=== PATIENT | male | born 1995 | race Caucasian/White ===

== ENCOUNTER 2016-10-09 13:41 | Emergency (ER) | payer OTHER ==
[2016-10-09 13:43] VITALS: BP 135/88; PULSE 71; RESP 20; TEMP 98.4; O2SAT 100
--- NOTE | 2016-10-09 14:22 | PD ---
Physical Exam Time Seen by Provider: 14:20 Narrative 20 y/o male with L sided chest pain, nausea for 2 days. went to a different emergency room yesterday for evaluation of this issue already. he has also had a h/a for 4 days and went to an emergency room for evaluation of this 4 days ago and reportedly had a CT of the brain which was normal. Vital signs reviewed. Seen at triage desk. Awaiting bed placement. Data Data Last Documented VS Vital Signs Date Time Temp Pulse Resp B/P Pulse Ox O2 Delivery O2 Flow Rate FiO2 10/09/16 13:43 98.4 71 20 135/88 100 Room Air [facility] Medical Record Reviewed: Yes Supervised Visit with LASHAE: Chuck Moctezuma Oct 09, 2016 14:22
[2016-10-09] MEDS ORDERED: SODIUM CHLOR 0.9% 1000 ML INJ 1,000 ML IV SCH (17:53)
--- NOTE | 2016-10-09 17:54 | PD ---
HPI Chief Complaint: Chest Pain Time Seen by Provider: 17:54 Travel History International Travel<30 days: No Contact w/Intl Traveler<30days: No Traveled to known affect area: No History of Present Illness HPI 20-year-old male presents to the emergency department for evaluation of left anterior chest pain that began yesterday. Patient describes the pain as sharp and intermittent. States that he has also had nausea and vomiting for 2-3 days. States that he does have some mild shortness of breath and feels very hot. States that he was seen at [facility] last night for the chest pain and discharged home. States that he has swelling of his left breast that has been present and worsening over the last 6 years. He has been told he needs an outpatient mammogram but has not followed up. Denies any chills, abdominal pain , swelling of the extremities, lightheadedness, dizziness, syncope. Denies alcohol use. He smokes cigarettes and cannabis. Denies any family history of heart disease or [place]. Denies any family history of sudden cardiac . He does admit that he is under a lot of stress as he is currently going through a divorce. No other complaints. [facility] Past Medical History Medical History: Denies Significant Hx Tetanus Vaccination: > 5 Years Influenza Vaccination: No Past Surgical History Appendectomy: Yes Social History Alcohol Use: No Tobacco Use: Yes (1 PPD) Substance Use: Yes Allergies-Medications (Allergen,Severity, Reaction): Coded Allergies: No Known Allergies (Unverified , 10/09/16) Reported Meds & Prescriptions Reported Meds & Active Scripts Active No Active Prescriptions or Reported Medications Review of Systems Except as stated in HPI: all other systems reviewed are Neg Physical Exam Narrative GENERAL: Well-nourished and well-developed pleasant patient in no acute distress who is nontoxic appearing. SKIN: Warm and dry. HEAD: Normocephalic and atraumatic. EYES: No injection, drainage, or hyphema noted. PERRLA. EOMI. ENT: No nasal drainage noted. Oropharynx is clear. NECK: Supple and the trachea is midline. CARDIOVASCULAR: Regular rate and rhythm. RESPIRATORY: Breath sounds are equal bilaterally with no accessory muscle use, wheezing, rhonchi, or crackles. CHEST: Tenderness to palpation along left sternal border. Right breast is within normal limits. Left breast tissue is enlarged but nontender. No erythema, warmth, nipple discharge, induration. GASTROINTESTINAL: Abdomen is soft, non-tender, and nondistended. MUSCULOSKELETAL: No obvious deformities, swelling, cyanosis, or ecchymosis is present throughout the upper and lower extremities. Patient has full range of motion without any signs of neurovascular compromise. NEUROLOGICAL: Awake, alert, and oriented. Normal speech and gait. Cranial nerves are grossly intact. Data Data Last Documented VS Vital Signs Date Time Temp Pulse Resp B/P Pulse Ox O2 Delivery O2 Flow Rate FiO2 10/09/16 19:27 73 16 119/65 98 Room Air 10/09/16 13:43 98.4 Orders Electrocardiogram (10/09/16 17:51) Ckmb (Isoenzyme) Profile (10/09/16 17:51) Complete Blood Count With Diff (10/09/16 17:51) Comprehensive Metabolic Panel (10/09/16 17:51) Magnesium (Mg) (10/09/16 17:51) Prothrombin Time / Inr (Pt) (10/09/16:51) Act Partial Throm Time (Ptt) (10/09/16 17:51) Troponin I (10/09/16 17:51) Lipase (10/09/16 17:51) Chest, Single Ap (10/09/16 17:51) Ecg Monitoring (10/09/16 17:51) Iv Access Insert/Monitor (10/09/16 17:51) Oximetry (10/09/16 17:51) Sodium Chloride 0.9% Flush (Ns Flush) (10/09/16 18:00) Ct Pulmonary Angiogram (10/09/16 17:53) Sodium Chlor 0.9% 1000 Ml Inj (Ns 1000 M (10/09/16 17:53) CKMB (10/09/16 18:25) CKMB% (10/09/16 18:25) Alprazolam (Xanax) (10/09/16 20:00) Iohexol 350 Inj (Omnipaque 350 Inj) (10/09/16 20:17) Ketorolac Inj (Toradol Inj) (10/09/16 20:45) Mandatory Outpatient Referral (10/09/16 20:41) Labs Laboratory Tests Test 10/09/16 18:25 White Blood Count 12.2 TH/MM3 Red Blood Count 4.81 MIL/MM3 Hemoglobin 14.4 GM/DL Hematocrit 43.1 % Mean Corpuscular Volume 89.7 FL Mean Corpuscular Hemoglobin 29.9 PG Mean Corpuscular Hemoglobin 33.3 % Concent Red Cell Distribution Width 12.6 % Platelet Count 168 TH/MM3 Mean Platelet Volume 9.4 FL Neutrophils (%) (Auto) 79.6 % Lymphocytes (%) (Auto) 14.3 % Monocytes (%) (Auto) 5.6 % Eosinophils (%) (Auto) 0.4 % Basophils (%) (Auto) 0.1 % Neutrophils # (Auto) 9.7 TH/MM3 Lymphocytes # (Auto) 1.7 TH/MM3 Monocytes # (Auto) 0.7 TH/MM3 Eosinophils # (Auto) 0.0 TH/MM3 Basophils # (Auto) 0.0 TH/MM3 CBC Comment DIFF FINAL Differential Comment Prothrombin Time 11.5 SEC Prothromb Time International 1.0 RATIO Ratio Activated Partial 26.8 SEC Thromboplast Time Sodium Level 139 MEQ/L Potassium Level 4.0 MEQ/L Chloride Level 107 MEQ/L Carbon Dioxide Level 26.8 MEQ/L Anion Gap 5 MEQ/L Blood Urea Nitrogen 13 MG/DL Creatinine 0.84 MG/DL Estimat Glomerular Filtration 114 ML/MIN Rate Random Glucose 80 MG/DL Calcium Level 9.3 MG/DL Magnesium Level 2.0 MG/DL Total Bilirubin 1.0 MG/DL Aspartate Amino Transf 23 U/L (AST/SGOT) Alanine Aminotransferase 21 U/L (ALT/SGPT) Alkaline Phosphatase 56 U/L Total Creatine Kinase 140 U/L Creatine Kinase MB 0.7 NG/ML Troponin I LESS THAN 0.02 NG/ML Total Protein 7.2 GM/DL Albumin 4.4 GM/DL Lipase 102 U/L [facility] Medical Decision Making Medical Screen Exam Complete: Yes Emergency Medical Condition: Yes Differential Diagnosis Costochondritis versus pleurisy versus PE versus mass Narrative Course 20-year-old male presents to the emergency department for evaluation of left anterior chest pain that began yesterday. Patient is afebrile, vital signs are stable. On physical examination he has tenderness to the left anterior chest wall along the sternum and he has an enlarged left breast however no tenderness or signs of infection of the breast tissue. IV access was obtained, labs of been drawn and sent. Patient is placed on cardiac telemetry and pulse oximetry monitoring. CT pulmonary angiogram has been ordered and is pending. EKG shows sinus bradycardia with ventricular rate of 50 bpm, just elevations or depressions. CBC shows slightly elevated white blood cell count 12.2, otherwise unremarkable. CMP is unremarkable. Cardiac enzymes are negative. Coags are unremarkable. Chest x-ray is negative for any acute abnormalities. CT pulmonary pulmonary angiogram is negative for PE. Discussed all findings with the patient. Labs and imaging are reassuring. Patient has remained stable while here in the emergency department. His pain is likely secondary to costochondritis or musculoskeletal etiology. He does have left breast tissue prominence which is likely gynecomastia. Because this is the side where he is having pain and he has never had this properly evaluated will order a mandatory outpatient referral for the breast navigator to have the patient follow-up as an outpatient. I discussed the case with my attending physician Dr. Arthur who is aware of the patients history, physical examination findings, and treatment plan. Diagnosis Primary Impression: Chest wall pain Additional Impressions: Gynecomastia, male Anxiety Referrals: Primary Care Physician Patient Instructions: Chest Wall Pain (ED), General Instructions, Gynecomastia (ED) Med/Other Pt SpecificInfo: Prescription(s) given Scripts Naproxen 500 Mg Ult675 Mg PO BID 7 Days Ref 0 Prov:Ras Arthur MD 10/09/16 Disposition: 01 DISCHARGE HOME Condition: Stable Gia Rubio Oct 09, 2016 17:54
[2016-10-09] MEDS ORDERED: SODIUM CHLORIDE 0.9% FLUSH 10 ML FLUSH IVF PRN (18:00)
[2016-10-09 18:36] VITALS: O2SAT 99
[2016-10-09 18:48] VITALS: BP 121/66; PULSE 58; RESP 18; O2SAT 100
--- NOTE | 2016-10-09 18:48 | RADRPT ---
EXAM DATE/TIME: 10/09/2016 18:41 [facility] COMPARISON: No previous studies available for comparison. INDICATIONS : Chest pain since yesterday. MEDICAL HISTORY : None. SURGICAL HISTORY : None. ENCOUNTER: Initial ACUITY: 2 days PAIN SCORE: 8/10 LOCATION: Bilateral chest FINDINGS: The lungs are clear without infiltrate, nodule, or mass. There is no appreciable pleural effusion fo r technique. Heart and mediastinum are unremarkable. CONCLUSION: No acute cardiopulmonary disease. Silva Jacobs MD on October 09, 2016 at 18:46 Board Certified Radiologist. This report was verified electronically.
[2016-10-09 18:51] LABS: AUTOMATED NEUTROPHIL # 9.7 TH/MM3 (1.8-7.7); BASOPHIL % 0.1 % (0.0-2.0); EOSINOPHIL % 0.4 % (0.0-4.0); HEMATOCRIT 43.1 % (39.0-51.0); HEMO FLAGS DIFF FINAL; LYMPH % 14.3 % (9.0-44.0); LYMPHOCYTE # 1.7 TH/MM3 (1.0-4.8); MEAN CELL VOLUME 89.7 FL (80.0-100.0); MEAN CORPUSCULAR HEMOGLOBIN 29.9 PG (27.0-34.0); MEAN CORPUSCULAR HGB CONC 33.3 % (32.0-36.0); MONO % 5.6 % (0.0-8.0); NEUT % 79.6 % (16.0-70.0); PLATELET COUNT 168 TH/MM3 (150-450); RED BLOOD COUNT 4.81 MIL/MM3 (4.50-5.90); RED CELL DISTRIBUTION WIDTH 12.6 % (11.6-17.2); WHITE BLOOD COUNT 12.2 TH/MM3 (4.0-11.0)
[2016-10-09 18:56] LABS: APTT (PATIENT) 26.8 SEC (24.3-30.1); PROTHROMBIN TIME - PATIENT 11.5 SEC (9.8-11.6)
[2016-10-09 18:58] LABS: ALT (GPT) 21 U/L (12-78)
[2016-10-09 19:07] LABS: ALKALINE PHOSPHATASE 56 U/L (45-117); ANION GAP 5 MEQ/L (5-15); AST (GOT) 23 U/L (15-37); BICARBONATE 26.8 MEQ/L (21.0-32.0); BLOOD UREA NITROGEN 13 MG/DL (7-18); CHLORIDE 107 MEQ/L (98-107); CREATINE KINASE 140 U/L (39-308); GLOMERULAR FILTRATION RATE 114 ML/MIN (>89); SODIUM (NA) 139 MEQ/L (136-145)
[2016-10-09 19:27] VITALS: BP 119/65; PULSE 73; RESP 16; O2SAT 98
[2016-10-09 19:27] LABS: CKMB 0.7 NG/ML (0.5-3.6)
[2016-10-09] MEDS ORDERED: ALPRAZolam 0.25 MG TAB PO ONE (20:00)
[2016-10-09] MEDS ORDERED: IOHEXOL 350 MG/ML 10 ML VIAL (for RAD DIAG) IV ONE (20:17)
--- NOTE | 2016-10-09 20:23 | RADRPT ---
EXAM DATE/TIME: 10/09/2016 20:03 [place] Corrected on: October 09, 2016; [facility] COMPARISON: No previous studies available for comparison. INDICATIONS : Chest pain starting last night IV CONTRAST: 75 cc Omnipaque 350 (iohexol) IV RADIATION DOSE: 22.29 CTDIvol (mGy) MEDICAL HISTORY : None SURGICAL HISTORY : Appendectomy. ENCOUNTER: Initial ACUITY: 1 day PAIN SCALE: 4/10 LOCATION: Left chest TECHNIQUE: Volumetric scanning of the chest was performed using a pulmonary embolism protocol MIP images were re constructed. Using automated exposure control and adjustment of the mA and/or kV according to patien t size, radiation dose was kept as low as reasonably achievable to obtain optimal diagnostic quality images. DICOM format image data is available electronically for review and comparison. Follow-up recommendations for incidentally detected pulmonary nodules are based at a minimum on nodul e size and patient risk factors according to Fleischner Society Guidelines. FINDINGS: The lungs are clear without infiltrate, nodule, or mass. There is no pleural effusion. No appreciab le pathological adenopathy is seen within the mediastinum. There is no evidence for PE for technique. There is prominent tissue in the patient's left breast measures 5.8 x 1.1 cm in transverse and AP di ameters. The right breast demonstrates similar tissue measures 1.8 cm in size in the retroareolar por tion. CONCLUSION: 1. There is no evidence for PE for technique. 2. Soft tissue density in the patient's breasts bilaterally mainly on the left side characteristic of gynecomastia. Clinical correlation is suggested. Silva Jacobs MD on October 09, 2016 at 20:37 Board Certified Radiologist. This report was verified electronically.
[2016-10-09] MEDS ORDERED: NAPR500T PO (20:42)
[2016-10-09] MEDS ORDERED: KETOROLAC TROMETHAMINE 30 MG/ML (IVP) VIAL IV PUSH ONE (20:45)
--- NOTE | 2016-10-11 11:03 | EKG ---
Date Performed: 10/09/2016 Time Performed: 18:22:39 PTAGE: 20 years EKG: SINUS BRADYCARDIA WITH SHORT AL INTERVAL WITH OCCASIONAL SUPRAVENTRICULAR PREMATURE COMPLEX ES POSSIBLE RIGHT VENTRICULAR CONDUCTION DELAY BORDERLINE ECG NO PREVIOUS TRACING DOCTOR: Dipak Gomes Interpretating Date/Time 10/11/2016 10:56:50
== END 2016-10-09 20:55 | disposition home or self-care (01) ==
LOC: NEPD 13:41
DX: R07.89 Other chest pain (principal); N62 Hypertrophy of breast; F41.9 Anxiety disorder, unspecified; R06.02 Shortness of breath; R00.1 Bradycardia, unspecified; F17.200 Nicotine dependence, unspecified, uncomplicated
CPT/HCPCS: 71010; 71275; 80053; 82550; 82552; 83690; 83735; 84484; 85025; 85610; 85730; 93005; 96374; 99285; J1885; J7030; Q9967